=== PATIENT | male | born 1975 | race Two or more races ===

== ENCOUNTER 2023-07-28 11:30 | Emergency (ER) | payer MEDICARE, MEDICAID, SELFPAY ==
--- NOTE | ~2023-07-28 | XR_ITS ---
EXAMINATION: XR CHEST CLINICAL INFORMATION: Cough. COMPARISON: None available. TECHNIQUE: 2 views of the chest were obtained. FINDINGS: No significant abnormality is noted involving the heart, lungs, mediastinum, bony thorax or soft tissues. XR/XR chest 2V IMPRESSION: Unremarkable chest examination.
[2023-07-28 11:49] VITALS: BP 126/81; PULSE 87; RESP 18; TEMP 37.1; O2SAT 96; BMI 28.1
--- NOTE | 2023-07-28 11:49 | ED.URI ---
HPI - URI/Sore Throat General Chief Complaint: Upper Respiratory Symptoms Stated Complaint: Sinus infection Time Seen by Provider: 07/28/23 14:36 Source: patient Mode of arrival: ambulatory Limitations: no limitations History of Present Illness HPI Narrative: 48 year old male with pmhx significant for stiff person syndrome and asthma presents to the ED today for evaluation of productive cough, chills, sore throat, SOB, myalgias, bilateral ear pain and sinus infection x1 week. Admits that he has been having increased difficulty breathing. Does not have inhaler at home for asthma. Cough is productive of yellow/green sputum. Admits to pain to bilateral ears without changes to hearing or drainage from the ears. Denies recent swimming, travel, plane rides, or scuba diving. Denies fever, headache, dizziness, dysphagia, odynophagia, chest pain, LE pain/swelling. Denies known sick contacts. Related Data Previous Rx's Medication Instructions Recorded albuterol sulfate 90 mcg/actuation 2 puff inhalation Q6H PRN 07/28/23 aerosol inhaler shortness of breath or wheezing #6.7 grams cefdinir 300 mg capsule 300 mg PO BID 7 days #14 caps 07/28/23 prednisone 20 mg tablet 20 mg PO DAILY 5 days #5 tabs 07/28/23 Allergies Allergy/AdvReac Type Severity Reaction Status Date / Time acetaminophen [From Vicodin] Allergy Unknown Verified 07/28/23 11:49 hydrocodone [From Vicodin] Allergy Unknown Verified 07/28/23 11:49 Penicillins Allergy Unknown Verified 07/28/23 11:49 Review of Systems Review of Systems: Constitutional: No fever, +chills, No fatigue, night sweats, weight changes ENT/Mouth: No ear pain, hearing loss, nasal congestion, sinus pain, rhinorrhea, +sore throat Eyes: No eye pain, swelling, redness, vision changes, discharge Cardio: No chest pain, palpitations, GARCIA, orthopnea, peripheral edema Pulm: +SOB, +cough, +sputum, No wheezing, dyspnea, hemoptysis GI: No nausea, vomiting, hematemesis, abdominal pain, diarrhea, constipation, hematochezia, melena : No irregular bleeding, dysuria, frequency, urgency, hesitancy, hematuria, flank pain, urinary flow changes, urinary incontinence or retention MSK: No back pain, neck pain, joint pain, myalgias Skin: No lesions, rashes Neuro: No weakness, numbness, paresthesias, LOC, dizziness, headache Psych: No anxiety/panic, depression, SI/HI, AH/VH All other systems reviewed and are negative. [facility] Past Medical History Attestation statement: The following information was validated with the patient. Source: old records reviewed and nursing notes reviewed Social History Social History Advance Directives: No Advance Directives Information Provided: Yes Physical Exam Vital Signs: Vital Signs: Last Vital Signs Temp 98.4 F 07/28/23 15:22 Pulse 88 07/28/23 15:22 Resp 22 H 07/28/23 15:22 BP 115/84 07/28/23 15:22 Pulse Ox 96 07/28/23 15:22 O2 Del Method Room Air 07/28/23 15:22 BMI result Body Mass Index 28.1 Tachypenic Const: Other: + restless, agitated, pacing around room, pressured speech Orientation/consciousness: patient oriented x3 Limitations: no limitations HEENT: Other: + No pain on manipulation of left pinna or tragus. No mastoid tenderness. Left EAC erythematous without edema or discharge. TM intact, erythematous and bulging. No effusion. + No pain on manipulation of right pinna or tragus. No mastoid tenderness. Right EAC erythematous without edema or discharge. TM intact, erythematous and bulging. No effusion. + posterior oropharynx without erythema or edema. no tonsillar exudates. uvula midline. controlling secretions and speaking in complete sentences. Head: Yes normal to inspection Ears: hearing grossly normal bilaterally and no periauricular adenopathy General nose exam: Nasal discharge present Face and sinus: Yes normal facial exam and Yes sinuses nontender Eyes: General: appearance normal, both eyes and all related structures Neck: Neck: Yes normal visual inspection and Yes no lymphadenopathy Chest: Chest palpation & inspection: normal inspection of the chest and normal palpation of entire chest wall Resp: Other: + diffuse expiratory wheezes. Tachypneic. Speaking in full, complete sentences. No tripoding. No stridor. Cardio: Jugular venous distension: no JVD Rate: regular rate Rhythm: regular rhythm Heart sounds: S1 normal heart sound present and S2 normal heart sound present Peripheral pulses: Peripheral pulses 2+ throughout Skin: General skin exam: no rashes or lesions noted Neuro: General: patient oriented x3 Extrem: General: Yes capillary refill normal, Yes no clubbing, cyanosis or edema and Yes no calf tenderness Psych: Appearance: disheveled Speech and movement: Pressured speech present and Psychomotor agitation in speech present Affect: normal affect Course Course Course Narrative: RME: 48 year-old M w/PMHx asthma presenting to the ED c/o productive cough x 4 days with chills, SOB, myalgias, sinus infection, & bilateral ear pain (x1 week) +diffuse exp wheeze on exam, dry cough noted Viral testing, CXR, rapid streo & ED Bronch protocol ordered Full HPI, ROS and PE to be performed by primary ED provider. Reevaluation(s) Reevaluation #1: 1504-- Patient has tested negative for covid, flu, strep, and RSV. CXR does not demonstrate infiltrate or consolidation to suggest pneumonia and is unremarkable. Patient currently receiving albuterol treatment from RT for diffuse wheezes. 1521-- Following RT duo neb, patient continues to have diffuse expiratory wheezes on exam. will place order for decadron and re-evaluate. 1601-- On re-evaluation, patient still with diffuse expiratory wheezes. I explained the need for IV medications for further treatment > patient refuses and would like to leave the ED. He is pacing around the room stating I have PTSD, I can't stay here anymore . Speech is pressure and he seems agitated. I explained the various risks of leaving the ED against medical advice and without further treatment to which he verbalizes understanding and states that he would like to leave. Patient signed out AMA. > given bilateral middle ear infections on exam, Cefdinir sent to pharmacy as patient has penicillin allergy. > will also send Prednisone and albuterol inhaler to pharmacy for asthma. Medications Administered Discontinued Medications Generic Name Dose Route Start Last Admin Trade Name Freq PRN Reason Stop Dose Admin Albuterol Sulfate 5 mg/ 0 mg 07/28/23 15:00 07/28/23 15:02 Albuterol/Ipratropium 3 ml INHALE 07/28/23 15:01 7.5 each ONCE ONE Administration Dexamethasone Sodium Phosphate 10 mg 07/28/23 15:19 07/28/23 15:27 Dexamethasone Sod Phosphate 10 Mg/Ml Vial IVPUSH 07/28/23 15:20 10 mg ONCE ONE Administration Medical Decision Making Medical Decision Making [facility] Narrative: 48 year old male with pmhx significant for stiff person syndrome and asthma presents to the ED today for evaluation of productive cough, chills, sore throat, SOB, myalgias, bilateral ear pain and sinus infection x1 week. Patient tachypneic, vitals otherwise wnl. Refer to PE section for findings. Clinical concern for viral syndrome, strep throat, pneumonia, asthma exacerbation, otitis media, otitis externa, substance use. Unlikely mastoiditis, malignant otitis externa, TM perforation, EMERGENCY DEPT TECH, retropharyngeal abscess, epiglottitis, pneumothorax, ARDS. CXR, viral swabs, and strep swab ordered in triage. Plan for RT breathing treatment, steroids, and re-evaluation. Differential Diagnosis Differential Diagnoses: The differential diagnosis associated with the presentation includes as above. Admission/Observation Consideration of admission/observation: Escalation of care including admission/observation considered In this patient with hx of asthma, here with diffuse wheezes and SOB unresponsive to albuterol and steroids, admission considered. Consult Healthcare Provider Management of the patient was discussed with: Optical Effects Line Up Person (respiratory therapy) Lab Data [facility] Lab Attestation statement: I reviewed the patient's lab results. as above. Labs: Lab Results 07/28/23 Range/Units 11:59 Influenza Type A (PCR) NEGATIVE (Negative) Influenza Type B (PCR) NEGATIVE (Negative) RSV RNA Qual (PCR) NEGATIVE (Negative) SARS-CoV-2 RNA (RT-PCR) NEGATIVE (Negative) S. pyogenes GrpA HOLLIE Negative (Negative) Independent Interpretation I performed an independent interpretation of an: Plain X-Ray Interpretation: I have personally reviewed CXR and agree with radiologist's interpretation. Radiology Impression Discussion of test interpretation with radiology: I have reviewed the radiologist's reading. Radiologist Impression: XR chest 2V IMPRESSION: Unremarkable chest examination. Prescription Management I considered prescription management with: Antibiotic (cefdinir) and Other (prednisone, albuterol) Chronic Conditions Patient?s care impacted by: Other (asthma, PTSD) Social Determinants Patient?s care significantly limited by Social Determinants of Health including: Other Social Determinant of Health Critical Care Time Critical Care Time Critical Care Time: Yes Total Critical Care Time: 35 Attestation: Critical care time in the amount of 35 minutes has been provided to the patient in terms of direct patient care, frequent reevaluation, consultation with respiratory therapy, review and interpretation of medical data and results, and management of potentially life-threatening conditions. This is all outside of any medical procedures. Discharge Plan Discharge Clinical Impression: Asthma exacerbation, Bilateral acute otitis media Patient Disposition: Left Against Medical Advice Instructions: Asthma (ED), How to Use a Metered-Dose Inhaler (ED), Wheezing (ED) Additional Instructions: You were evaluated in the ED today for acute asthma exacerbation. You were given a breathing treatment, steroid, and decided to leave the ED without further treatment. You were educated on how to use an inhaler and one has been sent to your pharmacy for you to use when feeling short of breath, wheezy, or are having difficulty breathing. Prednisone, a steroid, has been sent to your pharmacy for you to take as prescribed over the next five days. You were also noted to have an ear infection in both of your ears. Cefdinir is an antibiotic that has been sent to your pharmacy to treat this. Take this as prescribed and do not skip any doses or finish it early as this may cause infection to worsen or return. Return to ED for new or worsening symptoms. Prescriptions: New prednisone 20 mg tablet 20 mg PO DAILY 5 Days Qty: 5 0RF cefdinir 300 mg capsule 300 mg PO BID 7 Days Qty: 14 0RF albuterol sulfate 90 mcg/actuation HFA aerosol inhaler 2 puff inhalation Q6H PRN (Reason: shortness of breath or wheezing) Qty: 6.7 0RF Stand Alone Forms: Against Medical Advice Interventions: ED Discharge Assessment Last Done: 07/28/23 16:13 Discharge Date/Time: 07/28/23 16:15
[2023-07-28 12:20] LABS: IDNOW Serial# 08D9AD1C; Strep A Nucleic Acid Negative (Negative)
[2023-07-28 12:51] LABS: Influenza A PCR NEGATIVE (Negative); Influenza B PCR NEGATIVE (Negative); Resp Syncy Virus RNA Qual PCR NEGATIVE (Negative); SARS COV2 PCR INHOUSE NEGATIVE (Negative)
[2023-07-28] MEDS: Albuterol Sulfate 5 MG, Albuterol/Iprat 2.5/0.5MG 3 ML 3 ML INHALE (15:02)
[2023-07-28 15:05] VITALS: RESP 18; O2SAT 95
[2023-07-28 15:22] VITALS: BP 115/84; PULSE 88; RESP 22; TEMP 36.9; O2SAT 96
[2023-07-28] MEDS: dexAMETHasone sod phosphate 10 MG/ML VIAL IVPUSH (15:27)
== END 2023-07-28 16:15 | disposition left against medical advice (07) ==
PROVIDERS: Physician Assistant; Emergency Provider Emergency Medicine
DX: J45.901 Unspecified asthma with (acute) exacerbation (principal); H66.93 Otitis media, unspecified, bilateral; J02.9 Acute pharyngitis, unspecified; R05.9 Cough, unspecified; Z20.828 Contact with and (suspected) exposure to other viral communicable diseases; Z11.52 Encounter for screening for COVID-19; Z79.899 Other long term (current) drug therapy
CPT/HCPCS: 0241U; 71046; 87651; 94640; 99284; J1100